=== PATIENT | female | born 1955 | race Caucasian/White ===

== ENCOUNTER → 2018-01-01 15:18 | Outpatient (CLI) | payer OTHER, SELFPAY ==
--- NOTE | 2018-01-01 15:28 | RAD_ITS ---
STUDY: X-RAY - LEFT KNEE REASON FOR EXAM: Female, 62 years old. Knee pain. TECHNIQUE: 3 view(s) of the knee. COMPARISON: None. FINDINGS: Normal visualized distal femur. Normal visualized proximal tibia and fibula. Normal proximal tibiofibular articulation. There is no acute fracture, dislocation or destructive osseous pathology. Normal medial femorotibial compartment. Normal lateral femorotibial compartment. Normal patellofemoral articulation. There is no demonstrated joint effusion. The soft tissue structures are unremarkable. RAD/Knee 3 Views IMPRESSION: Normal x-ray examination of the knee. Electronically Signed: Lenin Gustafson DO at 12:03 EDT Tel [phone], Service support ,
--- NOTE | 2018-01-01 15:28 | RAD_ITS ---
STUDY: X-RAY - RIGHT KNEE REASON FOR EXAM: Female, 62 years old. Total knee arthroplasty TECHNIQUE: 3 view(s) of the knee. COMPARISON: None. FINDINGS: There is a 3 part right knee arthroplasty. It appears to be in anatomic position and alignment noting that the patellofemoral compartment is partially obscured by the metallic components or possibly narrowed. There is no visualized acute fracture. There is a slight well-corticated irregular appearance of the proximal fibula on the lateral view which may represent old injury. RAD/Knee 3 Views IMPRESSION: Right knee arthroplasty as detailed above. Electronically Signed: Vanessa Castellanos MD at 16:22 EDT Tel , Service support ,
== END ==
PROVIDERS: Family Provider Family Medicine; PCP Family Medicine; Visit Provider Orthopaedic Surgery
DX: Z96.651 Presence of right artificial knee joint (principal); Z98.890 Other specified postprocedural states
CPT/HCPCS: 73562

== ENCOUNTER → 2018-01-29 14:56 | Outpatient (CLI) | payer OTHER, SELFPAY ==
--- NOTE | 2018-01-29 14:59 | BI_ITS ---
MAMMOGRAPHY - BILATERAL SCREENING REASON FOR EXAM: Female, 62 years old. Routine annual screening examination. PERTINENT HISTORY: Mother with breast cancer. TECHNIQUE: Digital bilateral breast kiya (3D mammographic acquisition) in the CC and MLO projections. 2-D mediolateral oblique (MLO) and craniocaudad (CC) views of both breasts were obtained. CAD: Full Field Digital Mammography with Computer Added Detection was performed. COMPARISON: Comparison is made with prior study dated January 15, 2016 and December 20, 2013. FINDINGS: Breast Composition: The breasts are almost entirely fatty. There are no dominant masses or suspicious calcifications. Stable small benign-appearing bilateral axillary lymph nodes. No other significant abnormalities are identified. There has been no significant change since the prior study. BI/SCREENING MAMM (CAD), BILAT IMPRESSION: Stable bilateral screening mammogram. Yearly follow-up mammogram recommended. (A) ASSESSMENT CATEGORY: BIRADS Category 1: Negative. A letter regarding these results will be sent to the patient by the facility within 30 days. Approximately 10% of breast cancers are not detected by mammography. A normal mammogram should not delay biopsy of a clinically suspicious abnormality. [id number] Electronically Signed: Benji Garcia MD at 8:16 EDT Tel [phone], Service support ,
== END ==
PROVIDERS: Family Provider Family Medicine; PCP Family Medicine; Visit Provider Family Medicine
DX: Z12.31 Encounter for screening mammogram for malignant neoplasm of breast (principal)
CPT/HCPCS: 77063; 77067

== ENCOUNTER → 2018-07-16 16:33 | Outpatient (CLI) | payer MEDICARE, OTHER, SELFPAY ==
[2018-07-16 17:36] LABS: Absolute Lymphocyte Count 1.96 X10^3/ul (0.83-4.51); Absolute Neutrophil Count 4.5 X10^3/uL (2.0-7.7); Basophil# 0.04 X10^3/uL; Basophil% 0.6 % (0-1); Eosinophil# 0.18 X10^3/uL; Eosinophils% 2.5 % (0-5); Hematocrit 42.3 % (37-47); Hemoglobin 14.4 g/dl (12.0-15.0); Lymphocyte # 1.96 X10^3/ul (4.0); Lymphocyte % 27.5 % (19-41); Mean Corpuscular Hgb 31.4 pg (27.0-32.0); Mean Corpuscular Volume 92.2 fL (81-99); Mean Platelet Vol. 10.6 fl (6.2-12.0); Monocyte# 0.39 X10^3/uL; Monocyte% 5.5 % (0-10); Neutrophil # 4.54 X10^3/uL (2.7-7.7); Neutrophil % 63.6 % (47-70); Platelet Count 223 K/mm3 (150-450); RBC Distribution Width CV 12.8 % (11.6-14.6); RBC Distribution Width SD 42.3 fl (35.1-43.9); Red Blood Count 4.59 M/mm3 (4.2-5.4); White Blood Count 7.1 K/mm3 (4.4-11.0)
[2018-07-16 17:49] LABS: Anion Gap 8 (5-15); BUN 17 mg/dL (7-18); BUN/Creat Ratio 21.8 RATIO (10-20); Calcium,Total 8.7 mg/dL (8.5-10.1); Chloride 104 mmol/L (98-107); Cholesterol 258 mg/dL (200); Creatinine, Serum 0.78 mg/dL (0.55-1.02); EST Glomerular Filtration Rate 79 mL/min (>60); Est Glom Filt Rate - Afr Amer 95 mL/min (>60); Glucose 106 mg/dL (74-106); High Density Lipoprotein 68 mg/dL; Potassium 3.9 mmol/L (3.5-5.1); Sodium Level 141 mmol/L (136-145); Thyroid Stim Hormone (TSH) 1.88 uIU/mL (0.358-3.74); Triglycerides 130 mg/dL; Very Low Density Lipoprotein 26 mg/dL (5-40)
[2018-07-16 18:06] LABS: POSITIVE COUNT NO; POSITIVE DIFFERENTIAL NO; POSITIVE MORPHOLOGY NO
== END ==
PROVIDERS: Family Provider Family Medicine; PCP Family Medicine; Referring Provider Family Medicine; Visit Provider Family Medicine
DX: G31.84 Mild cognitive impairment of uncertain or unknown etiology (principal); E78.00 Pure hypercholesterolemia, unspecified
CPT/HCPCS: 36415; 80048; 80061; 84443; 85025

== ENCOUNTER 2019-03-24 21:41 | Emergency (ER) | payer MEDICARE, OTHER, SELFPAY ==
[2019-03-24 21:42] VITALS: BP 134/72; PULSE 76; RESP 15; TEMP 37.3; O2SAT 99; BMI 34.7
--- NOTE | 2019-03-24 22:17 | CT_ITS ---
STUDY: CT BRAIN WITHOUT CONTRAST REASON FOR EXAM: Female, 64 years old. Headache. Dementia RADIATION DOSAGE (If Supplied By Facility): CTDIvol = ( 44.99 ) mGy, DLP = ( 762.36 ) mGycm TECHNIQUE: Transaxial CT imaging of the brain was performed without administration of intravenous contrast material. Individualized dose optimization techniques were used for this CT. COMPARISON: January 18, 2017 FINDINGS: Normal soft tissue structures. Normal calvarium. There is mild cerebral atrophy with widening of the extra-axial spaces and ventricular dilatation. There are areas of decreased attenuation within the white matter tracts of the supratentorial brain, consistent with microvascular disease changes. Normal basal ganglia and thalami. Normal brainstem. Normal cerebellum. There is no intracranial hemorrhage. There are no findings of an acute ischemic infarction. Normal visualized paranasal sinuses. CT/Brain/Head without Contrast IMPRESSION: Chronic involutional changes of the brain. Stable appearance. No hemorrhage Electronically Signed: Pre Ness MD at 23:32 EDT , Service support ,
[2019-03-24 22:19] LABS: Absolute Lymphocyte Count 2.52 X10^3/ul (0.83-4.51); Absolute Neutrophil Count 5.1 X10^3/uL (2.0-7.7); Basophil# 0.04 X10^3/uL; Basophil% 0.5 % (0-1); Eosinophil# 0.13 X10^3/uL; Eosinophils% 1.5 % (0-5); Hemoglobin 14.7 g/dl (12.0-15.0); Lymphocyte # 2.52 X10^3/ul (4.0); Lymphocyte % 29.4 % (19-41); Mean Corpuscular Hgb 30.8 pg (27.0-32.0); Mean Corpuscular Volume 87.9 fL (81-99); Mean Platelet Vol. 10.1 fl (6.2-12.0); Monocyte# 0.79 X10^3/uL; Monocyte% 9.2 % (0-10); Neutrophil % 59.4 % (47-70); Platelet Count 202 K/mm3 (150-450); RBC Distribution Width SD 41.8 fl (35.1-43.9); Red Blood Count 4.78 M/mm3 (4.2-5.4); White Blood Count 8.6 K/mm3 (4.4-11.0)
--- NOTE | 2019-03-24 22:19 | ED.DCSUM_ITS ---
- ER Visit Summary Date of Service: 03/24/19 Chief Complaint: Headache and lower abdominal cramping History of Present Illness: The patient is a 64 F history of dementia and diverticulitis. Prior cholecystectomy and hysterectomy. states she really has not said much to him recently. She states she has had a headache frontal for the last 2 weeks. Denies any falls or trauma. No blood thinners. Also states she has had intermittent lower abdominal cramping. No fever. She has had some intermittent diarrhea which is a constant and chronic problem for her. Denies any dysuria. Denies any weight loss. Denies any abdominal trauma. Physical Examination: Vital signs are stable afebrile. Older female no acute distress. at bedside. HEENT exam unremarkable atraumatic. Pupils are round reactive light. No facial droop. Normal speech. Neck nontender no meningismus. Lungs clear to auscultation bilaterally. Heart rate and rhythm no murmur. Abdomen soft. Nondistended normal bowel sounds no peritoneal signs. But the right upper right lower quadrant unremarkable. She complains of tenderness in both lower quadrants and suprapubically is minimally reproducible at all. There is minimal tenderness. Absolutely no peritoneal signs. No hernias or masses. No signs of obstruction. Moving all 4 extremities. Neurovascularly intact. Awake and alert. No focal motor deficits. Test Results: CBC normal with a white count 8. Hemoglobin 14. Electrolytes unremarkable potassium 3.0. Gap is 7. Creatinine normal. UA normal. No signs of infection. CAT scan of the brain showed no acute abnormality. Chronic involutional changes. Stable and unchanged. Read by the radiologist and reviewed by me. Emergency Department Course and Treatment: Screening labs are being obtained. CT of the brain also. She is a headache. Patient is also limited informant due to her dementia. She has actually had benign exam. Repeat exam patient is doing well at 00:22 a.m. and will be discharged home. Abdominal exam is benign. She feels and looks better. Treatment Plan: Foods and rest. Zofran as needed. Follow-up with her doctor if not improving return if worse. Disposition: dc Impression: Acute abdominal pain uncertain etiology Acute headache History dementia This note was generated with [employer] software. It may contain incorrect words, spelling, and punctuation that were not noted in review of the chart prior to signing ED Disposition - Plan for ED Patient: Referrals: Manuel Lu MD [Primary Care Provider] -
[2019-03-24 22:20] LABS: POSITIVE COUNT NO; POSITIVE DIFFERENTIAL NO; POSITIVE MORPHOLOGY NO
[2019-03-24] MEDS: Ondansetron 4 MG/2 ML Vial IV (22:24)
[2019-03-24 22:32] LABS: Anion Gap 7 (5-15); BUN 16 mg/dL (7-18); Calcium,Total 9.1 mg/dL (8.5-10.1); Chloride 104 mmol/L (98-107); Creatinine, Serum 1.07 mg/dL (0.55-1.02); EST Glomerular Filtration Rate 55 mL/min (>60); Est Glom Filt Rate - Afr Amer 66 mL/min (>60); Glucose 162 mg/dL (74-106); Sodium Level 142 mmol/L (136-145)
[2019-03-24 23:49] LABS: Mucous, Urine 0 SEEN /hpf (<or=2+); Red Blood Cells-Urine 0 SEEN /hpf (0-5)
[2019-03-24 23:51] LABS: Color, Urine Yellow (Yellow); Glucose, Dipstick Normal (Normal); Ketone-Dipstick Negative (Negative); Leukocyte Esterase-Dipstick 100 /ul (Negative); Nitrite-Dipstick Negative (Negative); Occult Blood-Urine 10 /ul (Negative); Protein-Dipstick Negative (Negative); Specific Gravity, Urine 1.005 (1.002-1.030); Urine Bilirubin Dipstick Negative (Negative); Urine Clarity Clear (Clear); Urine Urobilinogen Normal (Normal)
[2019-03-24 23:59] LABS: Bacteria RARE /hpf (None Seen); Squamous Epithelial Cells - UA 0-5 SEEN /hpf (5-10); White Blood Cells 0-5 SEEN /hpf (0-5)
--- NOTE | 2019-03-25 00:24 | ED.DEP ---
ED Disposition - Plan for ED Patient: Disposition: Home or Assisted Living Instructions: VOMITING AND DIARRHEA, Nonspecific (Adult) Prescriptions: Ondansetron [Zofran Odt] 4 mg PO Q8H PRN PRN #7 tab PRN Reason: Nausea Prescription Printed Referrals: Manuel Lu MD [Primary Care Provider] - 3-5 Days if not improving Additional Instructions: Clear fluids and rest. Stand slowly as tolerated. Zofran as needed for nausea. Return if you are feeling worse otherwise follow-up with your primary care doctor if you are not improving.
[2019-03-25] MEDS: Ondansetron 4 MG/2 ML Vial IV (00:39)
[2019-03-25] MEDS: Acetaminophen 325 MG Tablet 650 MG PO (00:39)
[2019-03-25 00:44] VITALS: BP 159/80; PULSE 74; RESP 16; O2SAT 98
== END 2019-03-25 00:50 | disposition home or self-care (01) ==
PROVIDERS: Emergency Provider Emergency Medicine; Family Provider Family Medicine; PCP Family Medicine
DX: R10.30 Lower abdominal pain, unspecified (principal); R51 Headache; F03.90 Unspecified dementia, unspecified severity, without behavioral disturbance, psychotic disturbance, mood disturbance, and anxiety; R11.0 Nausea; R19.7 Diarrhea, unspecified; Z90.49 Acquired absence of other specified parts of digestive tract; Z79.899 Other long term (current) drug therapy
CPT/HCPCS: 70450; 80048; 81001; 84703; 85025; 96374; 96376; 99285; P9612; A4216; J2405

== ENCOUNTER → 2019-05-03 | Outpatient (CLI) | payer MEDICARE, OTHER, SELFPAY ==
[2019-05-03 13:48] LABS: Absolute Lymphocyte Count 1.79 X10^3/uL (0.83-4.51); Absolute Neutrophil Count 3.8 X10^3/uL (2.0-7.7); Basophil# 0.05 X10^3/uL; Basophil% 0.8 % (0-1); Eosinophil# 0.13 X10^3/uL; Eosinophils% 2.1 % (0-5); Hematocrit 42.2 % (37-47); Hemoglobin 14.4 g/dL (12.0-15.0); Lymphocyte # 1.79 X10^3/ul (4.0); Lymphocyte % 29.1 % (19-41); Mean Corp Hgb Conc 34.1 g/dL (32-36); Mean Corpuscular Hgb 30.1 pg (27.0-32.0); Mean Corpuscular Volume 88.3 fL (81-99); Mean Platelet Vol. 10.6 fl (6.2-12.0); Monocyte# 0.37 X10^3/uL; NRBC Flagged by Analyzer 0 % (0-5); Neutrophil # 3.81 X10^3/uL (2.7-7.7); Neutrophil % 61.8 % (47-70); Platelet Count 202 K/mm3 (150-450); RBC Distribution Width CV 12.3 % (11.6-14.6); RBC Distribution Width SD 39.8 fl (35.1-43.9); Red Blood Count 4.78 M/mm3 (4.2-5.4); White Blood Count 6.2 K/mm3 (4.4-11.0)
[2019-05-03 14:12] LABS: ALB/GLOB Ratio 1.1 RATIO (0.9-2.4); AST(SGOT) 21 U/L (15-37); Alanine Aminotransfer ALT/SGPT 26 U/L (13-56); Albumin, Serum 4.1 g/dL (3.2-5.0); Alkaline Phosphatase 96 U/L (45-117); Anion Gap 7 (5-15); BUN 20 mg/dL (7-18); BUN/Creat Ratio 21.1 RATIO (10-20); Chloride 107 mmol/L (98-107); Creatinine, Serum 0.95 mg/dL (0.55-1.02); EST Glomerular Filtration Rate 63 mL/min (>60); Est Glom Filt Rate - Afr Amer 76 mL/min (>60); Globulin 3.8 g/dL (2.2-4.2); Glucose 105 mg/dL (74-106); Lipase 73 U/L (73-393); Potassium 3.6 mmol/L (3.5-5.1); Protein, Total 7.9 g/dL (6.4-8.2); Sodium Level 143 mmol/L (136-145); Thyroid Stim Hormone (TSH) 1.13 uIU/mL (0.358-3.74)
== END | disposition home or self-care (01) ==
LOC: MTLAB 12:01
PROVIDERS: Family Provider Family Medicine; PCP Family Medicine; Referring Provider Family Medicine; Visit Provider Family Medicine
DX: R53.83 Other fatigue (principal); R10.9 Unspecified abdominal pain
CPT/HCPCS: 36415; 80053; 83690; 84443; 85025

== ENCOUNTER → 2019-05-10 | Outpatient (CLI) | payer MEDICARE, OTHER, SELFPAY ==
--- NOTE | 2019-05-10 07:34 | CT_ITS ---
STUDY: CT ABDOMEN AND PELVIS WITH CONTRAST REASON FOR EXAM: Female, 64 years old. 4 week history of abdominal pain and abdominal cramping with nausea and vomiting. RADIATION DOSAGE (If Supplied By Facility): CTDIvol = ( 17.25 ) mGy, DLP = ( 1116.28 ) mGycm TECHNIQUE: Transaxial images were obtained from the dome of the diaphragm to the symphysis pubis with oral contrast. 100CC IV/Oral Isovue 300 was administered. Sagittal and coronal images were reconstructed. Individualized dose optimization techniques were used for this CT. COMPARISON: Comparison is made with prior examination dated January 18, 2017. FINDINGS: Minimal degree of dependent bibasilar atelectasis. The visualized portions of the heart are within normal limits. There is decreased attenuation of the liver consistent with steatosis. There are surgical clips in the gallbladder fossa consistent with a prior cholecystectomy. Normal spleen. There is diffuse atrophy of the pancreas. Normal bilateral adrenal glands. Normal right kidney. Normal left kidney. Normal visualized stomach. Normal small intestine. Large amount of fecal material is seen in the rectosigmoid colon. The appendix is visualized and appears normal. Normal abdominal aorta. Normal inferior vena cava. Normal retroperitoneum. Normal urinary bladder. There is absence of the uterus consistent with a prior hysterectomy. There is an umbilical hernia containing fat. The neck of the hernia measures 4.9 cm. Disc space narrowing and spondylosis at the L4-L5 level. CT/Abdomen/Pelvis WITH Contrast IMPRESSION: Moderate sized umbilical hernia. Large amount of fecal material is seen in the rectosigmoid colon. Fatty infiltration of the liver. Electronically Signed: Benji Garcia, at 14:57 EDT , Service support ,
== END | disposition home or self-care (01) ==
PROVIDERS: Family Provider Family Medicine; PCP Family Medicine; Referring Provider Family Medicine; Visit Provider Family Medicine
DX: R10.9 Unspecified abdominal pain (principal)
CPT/HCPCS: 74177; Q9967

== ENCOUNTER → 2019-05-13 | Outpatient (CLI) | payer MEDICARE, OTHER, SELFPAY ==
--- NOTE | 2019-05-13 13:47 | BI_ITS ---
MAMMOGRAPHY - BILATERAL SCREENING REASON FOR EXAM: Female, 64 years old. Routine annual screening examination. PERTINENT HISTORY: Mother with breast cancer. TECHNIQUE: Digital bilateral breast otis (3D mammographic acquisition) in the CC and MLO projections. 2-D mediolateral oblique (MLO) and craniocaudad (CC) views of both breasts were obtained. CAD: Full Field Digital Mammography with Computer Added Detection was performed. COMPARISON: Comparison is made with prior study dated January 29, 2018 and January 15, 2016. FINDINGS: Breast Composition: The breasts are almost entirely fatty. There are no dominant masses or suspicious calcifications. Stable small left axillary lymph nodes. No other significant abnormalities are identified. There has been no significant change since the prior study. BI/SCREEN MAMM (CAD) W/OTIS BILAT IMPRESSION: Stable bilateral screening mammogram. Yearly follow-up mammogram recommended. (A) ASSESSMENT CATEGORY: BIRADS Category 2: Benign. A letter regarding these results will be sent to the patient by the facility within 30 days. Approximately 10% of breast cancers are not detected by mammography. A normal mammogram should not delay biopsy of a clinically suspicious abnormality. [id number] Electronically Signed: Benji Garcia, at 15:09 EDT , Service support ,
== END | disposition home or self-care (01) ==
LOC: OPBI 13:45
PROVIDERS: Family Provider Family Medicine; PCP Family Medicine; Referring Provider Family Medicine; Visit Provider Family Medicine
DX: Z12.31 Encounter for screening mammogram for malignant neoplasm of breast (principal)
CPT/HCPCS: 77063; 77067

== ENCOUNTER → 2020-03-29 14:25 | Outpatient (CLI) | payer MEDICARE, OTHER, SELFPAY ==
--- NOTE | 2020-03-29 14:30 | RAD_ITS ---
STUDY: X-RAY - RIGHT KNEE REASON FOR EXAM: Female, 65 years old. The patient TECHNIQUE: 5 view(s) of the knee. COMPARISON: 01/01/2018 FINDINGS: There are stable postsurgical changes from right knee arthroplasty. The hardware is intact and alignment is satisfactory. There is no evidence of fracture or dislocation. There are no significant degenerative changes. There are no radiodense foreign bodies. RAD/Knee 4 or More Views IMPRESSION: Stable postsurgical changes from right knee arthroplasty with intact hardware in satisfactory alignment. No fracture or dislocation. Electronically Signed: Dominick Urena, at 15:07 EDT Tel , Service support ,
== END ==
PROVIDERS: PCP Family Medicine; Referring Provider Family Medicine; Visit Provider Family Medicine
DX: M25.561 Pain in right knee (principal)
CPT/HCPCS: 73564

== ENCOUNTER → 2020-04-28 15:27 | Outpatient (CLI) | payer MEDICARE, OTHER, SELFPAY ==
[2020-04-28 17:56] LABS: ALB/GLOB Ratio 1.3 RATIO (0.9-2.4); AST(SGOT) 22 U/L (15-37); Alanine Aminotransfer ALT/SGPT 25 U/L (13-56); Alkaline Phosphatase 92 U/L (45-117); Anion Gap 7 (5-15); BUN 21 mg/dL (7-18); BUN/Creat Ratio 21.9 RATIO (10-20); Chloride 106 mmol/L (98-107); Cholesterol 185 mg/dL (200); Creatinine, Serum 0.96 mg/dL (0.55-1.02); EST Glomerular Filtration Rate 62 mL/min (>60); Est Glom Filt Rate - Afr Amer 75 mL/min (>60); Globulin 3.1 g/dL (2.2-4.2); Glucose 87 mg/dL (74-106); High Density Lipoprotein 59 mg/dL; Potassium 3.3 mmol/L (3.5-5.1); Protein, Total 7.1 g/dL (6.4-8.2); Sodium Level 142 mmol/L (136-145); Triglycerides 81 mg/dL; Very Low Density Lipoprotein 16 mg/dL (5-40)
== END ==
PROVIDERS: PCP Family Medicine; Referring Provider Family Medicine; Visit Provider Family Medicine
DX: E78.00 Pure hypercholesterolemia, unspecified (principal)
CPT/HCPCS: 36415; 80053; 80061

== ENCOUNTER → 2020-05-15 14:57 | Outpatient (CLI) | payer MEDICARE, OTHER, SELFPAY ==
--- NOTE | 2020-05-15 14:59 | BI_ITS ---
MAMMOGRAPHY - BILATERAL SCREENING REASON FOR EXAM: Female, 65 years old. Routine annual screening examination. PERTINENT HISTORY: Mother with breast cancer. TECHNIQUE: Digital bilateral breast otis (3D mammographic acquisition) in the CC and MLO projections. 2-D mediolateral oblique (MLO) and craniocaudad (CC) views of both breasts were obtained. CAD: Full Field Digital Mammography with Computer Added Detection was performed. COMPARISON: Comparison is made with prior study dated 05/13/2019 and 01/29/2018. FINDINGS: Breast Composition: The breasts are almost entirely fatty. There are no dominant masses or suspicious calcifications. Stable benign-appearing bilateral axillary lymph nodes. No other significant abnormalities are identified. There has been no significant change since the prior study. BI/SCREEN MAMM (CAD) W/OTIS BILAT IMPRESSION: Stable bilateral screening mammogram. Yearly follow-up mammogram recommended. (A) ASSESSMENT CATEGORY: BIRADS Category 2: Benign. A letter regarding these results will be sent to the patient by the facility within 30 days. Approximately 10% of breast cancers are not detected by mammography. A normal mammogram should not delay biopsy of a clinically suspicious abnormality. [id number] Electronically Signed: Benji Garcia, at 16:00 EDT , Service support ,
== END ==
PROVIDERS: PCP Family Medicine; Referring Provider Family Medicine; Visit Provider Family Medicine
DX: Z00.00 Encounter for general adult medical examination without abnormal findings (principal); Z12.31 Encounter for screening mammogram for malignant neoplasm of breast
CPT/HCPCS: 77063; 77067

== ENCOUNTER 2020-06-05 14:47 | Emergency (ER) | payer MEDICARE, OTHER, SELFPAY ==
[2020-06-05 14:48] VITALS: BP 118/87; PULSE 90; RESP 16; TEMP 36.1; O2SAT 97; BMI 29.0
[2020-06-05] MEDS: Ondansetron 4 MG/2 ML Vial IV (15:23)
[2020-06-05 15:24] LABS: Bacteria 0 SEEN /hpf (None Seen); Mucous, Urine 0 SEEN /hpf (<or=2+); Red Blood Cells-Urine 0 SEEN /hpf (0-5)
--- NOTE | 2020-06-05 15:28 | ED.VISSUMM ---
- ER Visit Summary Date of Service: 06/05/20 Chief Complaint: Confusion History of Present Illness: The patient is a [address] Currie. Patient has a history of severe dementia and is not able to contribute to the history. Daughter reports the patient is always confused, but today was out wandering in traffic. She lives at home with her and he is no longer able to care for her. They did try getting a home health nurse last week and the patient was not compliant with that and actually became very agitated. On review of systems patient reports that she has a little headache. She reports that she has left hip pain. When asked if there is any recent injury she denies fall or MVA. 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 Physical Examination: Vitals: Stable. Afebrile. General: Well-nourished and well-developed. Head: Normocephalic atraumatic. Neck: Supple, no lymphadenopathy. No JVD. Nontender. Cardiovascular: Regular rate and rhythm. No murmurs. Respiratory: No respiratory distress. Clear to auscultation bilaterally. Abdominal: Soft, nontender, nondistended, normal bowel sounds. No guarding, rebound, or peritoneal signs. Back: Nontender. Extremities: Nontender, no edema. Skin: Normal color, no rash. Neurologic: Alert and oriented ?1. Cranial nerves II through XII are intact. Normal strength and sensation. Psych: Agitated. Test Results: Chem-7 shows potassium 3.2, glucose 147, creatinine 1.16. LFTs are normal. UA shows leukocytes. CBC is normal. Tox screen is negative. Alcohol is negative. TSH is 1.72. Clinical Impression(s) from Imaging Studies Brain CT 06/05/20 16:15 IMPRESSION: Chronic ischemic and involutional changes of the brain. Electronically Signed: Gualberto Jules MD at 16:59 EDT , Service support , Emergency Department Course and Treatment: Patient was discussed with case management. Family is no longer able to care for her at home. Case management felt the patient would benefit most from initial consultation with geriatric psychiatry and then be sent to assisted living. Additional labs, CT brain and EKG was ordered following this. Patient became increasingly agitated and was given Geodon IM. Treatment Plan: Patient is medically cleared. Patient is going to be transferred to a facility with geriatric psychiatric facilities. Disposition: Transferred in improved condition Impression: 1. Dementia with aggressive behavior. This note was generated with [employer] dictation software. It may contain incorrect words, spelling, and punctuation that were not noted in review of the chart prior to signing ED Disposition - Plan for ED Patient: Referrals: Manuel Currie MD [Primary Care Provider] -
[2020-06-05 15:48] LABS: AST(SGOT) 15 U/L (15-37); Alanine Aminotransfer ALT/SGPT 24 U/L (13-56); Alkaline Phosphatase 103 U/L (45-117); Anion Gap 7 (5-15); BUN 15 mg/dL (7-18); BUN/Creat Ratio 12.9 RATIO (10-20); Calcium,Total 9.2 mg/dL (8.5-10.1); Chloride 103 mmol/L (98-107); Creatinine, Serum 1.16 mg/dL (0.55-1.02); EST Glomerular Filtration Rate 50 mL/min (>60); Est Glom Filt Rate - Afr Amer 61 mL/min (>60); Estimated Creatinine Clearance 44.06 ml/min; Globulin 4.1 g/dL (2.2-4.2); Glucose 147 mg/dL (74-106); Potassium 3.2 mmol/L (3.5-5.1); Protein, Total 8.1 g/dL (6.4-8.2); Sodium Level 141 mmol/L (136-145)
[2020-06-05 16:10] LABS: Color, Urine YELLOW (Yellow); Glucose, Dipstick Normal (Normal); Urine Bilirubin Dipstick Negative (Negative); Urine Clarity Sl Cloudy (Clear)
[2020-06-05 16:11] LABS: Ketone-Dipstick Negative (Negative); Leukocyte Esterase-Dipstick 25 /ul (Negative); Nitrite-Dipstick Negative (Negative); Occult Blood-Urine Negative /ul (Negative); Protein-Dipstick NEGATIVE (Negative); Urine Urobilinogen Normal (Normal)
[2020-06-05 16:12] LABS: Squamous Epithelial Cells - UA 0-5 SEEN /hpf (5-10); White Blood Cells 0-5 SEEN /hpf (0-5)
--- NOTE | 2020-06-05 16:15 | EKG12_ITS ---
Test Reason : ALT LOC Blood Pressure : / mmHG Vent. Rate : 071 BPM Atrial Rate : 071 BPM P-R Int : 186 ms QRS Dur : 092 ms QT Int : 402 ms P-R-T Axes : 045 007 028 degrees QTc Int : 436 ms Normal sinus rhythm Normal ECG Confirmed by SHIVA LALA MD ([id number]), map editor YAS TORRES ([id number]) on 06/06/2020 1:29:37 PM Referred By: DONNY Confirmed By:SHIVA LALA MD
--- NOTE | 2020-06-05 16:15 | CM.ED ---
Social Work Consult: Support/Resources Informant: Dr. Pagan Chief Complaint: Patient has been wondering and becoming aggressive with family. Patient family is having difficulty managing patient care in the home. Marital/Social History: to [employer] for the past 40 years. Patient spouse is health care power of insurance defense attorney along with patient daughters. Health Care power of insurance defense attorney is on patient medical chart. Living Situation: Lives with patient spouse. Support/Resources: Active with community service aide services. Mental Health Treatment/History: Diagnosed with Frontal Lobe Dementia. No history of mental health. No history of inpatient psychiatric placement. Substance Abuse/Use: Denies History of Abuse: Denies Mental Status Exam: Alert to self and place. Patient states reason for ER visit is due to my side. Appearance/General Behavior: Pleasant but became paranoid the longer this social sciences lecturer was in the room asking patient questions. Judgement: Poor Assessment: Met with patient and patient daughterReina in the room. Introduced self and social sciences lecturer role. Patient/Reina agreeable to speaking with this social sciences lecturer. This social sciences lecturer inquiring as to reason for patient visit today patient states to get checked out. Patient denies wondering in the road today or having a . Patient states I am not . Patient state everything is fine. Patient becoming increasing agitated (moving more around in the bed) and paranoid (looking back and forth at this social sciences lecturer and Reina). This social sciences lecturer discontinuing asking patient questions due to increase in agitation. Reina then stepping out of the room and speaking with this social sciences lecturer. Reina states that patient has been increasing in agitation and wondering. Reina states that patient spouse is unable to care for patient in the home any longer. Reina states that patient does not shower and refused to take medications. Reina states to believe that patient goes between the ages of 1 and 11 on current time frame. Reina states that patient says horrible things about my father. Reina states that it is like she plays different personalities when defining patient conversations with self and others. Reina states that patient has also been perseverating on being a dancer. Reina states that patient did do some dancing when an adolescent. Reina states that the family has been planning to get patient set up with an assisted living facility either [place] or [place] and to have had plans to start the process this week. This social sciences lecturer educating Reina on [facility] option as patient is meeting criteria. Reina to speak with patient spouse and Reina's other sisters. Patient spouse is currently out in the parking lot as patient is agitated by patient spouse of 40 years. Reina to go and call family and get back to this social sciences lecturer. Collaborating with Dr. Pagan. Agreeable to [facility]. PLAN: [facility]. Fidel PINEDA, CHAZ
--- NOTE | 2020-06-05 16:15 | CT_ITS ---
STUDY: CT BRAIN WITHOUT CONTRAST REASON FOR EXAM: Female, 65 years old. CHANGE IN MENTAL STATUS. WONDERING THROUGH TRAFFIC. HISTORY OF DEMENTIA RADIATION DOSAGE (If Supplied By Facility): CTDIvol = ( 44.99 ) mGy, DLP = ( 829.85 ) mGycm TECHNIQUE: Transaxial CT imaging of the brain was performed without administration of intravenous contrast material. Individualized dose optimization techniques were used for this CT. COMPARISON: Head CT dated March 24, 2019 FINDINGS: Normal soft tissue structures. Normal calvarium. There is moderate cerebral atrophy with widening of the extra-axial spaces and ventricular dilatation. There are areas of decreased attenuation within the white matter tracts of the supratentorial brain, consistent with microvascular disease changes. Chronic patchy ischemic changes are present in the right basal ganglia. Unremarkable thalami. Normal brainstem. Normal cerebellum. There is no intracranial hemorrhage. There are no findings of an acute ischemic infarction. Normal visualized paranasal sinuses. CT/Brain/Head without Contrast IMPRESSION: Chronic ischemic and involutional changes of the brain. Electronically Signed: Gualberto Jules MD at 16:59 EDT , Service support ,
[2020-06-05] MEDS: Ziprasidone IM 20 MG/ML VIAL 10 MG IM ×2 (16:30→20:20)
[2020-06-05 17:11] VITALS: BP 111/65; PULSE 80; RESP 16; O2SAT 99
[2020-06-05 17:12] LABS: Thyroid Stim Hormone (TSH) 1.72 uIU/mL (0.358-3.74)
[2020-06-05 17:14] LABS: Amphetamine Urine VISTA NEGATIVE (<1000 ng/mL); Barbiturate Urine VISTA NEGATIVE (< 200 ng/mL); Benzodiazepine Urine VISTA NEGATIVE (< 200 ng/mL); Cocaine Urine VISTA NEGATIVE (< 300 ng/mL); Ecstacy Urine VISTA NEGATIVE (< 500 ng/mL); Methadone Urine VISTA NEGATIVE (< 300 ng/mL); PCP Urine VISTA NEGATIVE (< 25 ng/mL); THC Urine VISTA NEGATIVE (< 50 ng/mL); Vista UDS pH Range 5
--- NOTE | 2020-06-05 17:15 | ED.RN ---
MEAL TRAY ORDERED AT THIS TIME.
[2020-06-05 17:17] LABS: Absolute Lymphocyte Count 1.96 X10^3/uL (0.83-4.51); Absolute Neutrophil Count 4.9 X10^3/uL (2.0-7.7); Basophil# 0.05 X10^3/uL; Basophil% 0.7 % (0-1); Eosinophils% 1.3 % (0-5); Hematocrit 43.4 % (37-47); Hemoglobin 14.7 g/dL (12.0-15.0); Lymphocyte # 1.96 X10^3/ul (4.0); Lymphocyte % 26.3 % (19-41); Mean Corp Hgb Conc 33.9 g/dL (32-36); Mean Corpuscular Hgb 29.9 pg (27.0-32.0); Mean Corpuscular Volume 88.2 fL (81-99); Mean Platelet Vol. 11.3 fl (6.2-12.0); Monocyte# 0.37 X10^3/uL; NRBC Flagged by Analyzer 0 % (0-5); Neutrophil # 4.93 X10^3/uL (2.7-7.7); Neutrophil % 66.3 % (47-70); Platelet Count 246 K/mm3 (150-450); RBC Distribution Width CV 12.3 % (11.6-14.6); RBC Distribution Width SD 39.8 fl (35.1-43.9); Red Blood Count 4.92 M/mm3 (4.2-5.4); White Blood Count 7.4 K/mm3 (4.4-11.0)
--- NOTE | 2020-06-05 17:50 | CM.ED ---
Social Work Reina updating this social work nurse that patient family is agreeable to [facility] placement. Telephone call to [facility]. Intake information provided. Clinical information faxed. [facility] is requesting for a COVID test to be completed to be able to accept. This social work nurse updated Dr. Pagan on need for COVID test. PLAN: Pending approval at [facility]. Fidel Hsu GLEASON GEAR GENERATOR, CHAZ
--- NOTE | 2020-06-05 19:07 | CM.ED ---
Social Work Telephone call from Sundeep Day. This rn social work able to answer Sundeep's questions. Sundeep to have doctor review case and get back to this rn social work. Fidel PINEDA, CHAZ
--- NOTE | 2020-06-05 20:22 | CM.ED ---
Social Work Telephone call from Sundeep Day. Patient has been accepted. Patient has been accepted by Dr. Alicia Navas. Nurse to call report to [phone]. Patient to admit to the [facility] facility. Updated patient, patient family, and medical team. Patient HCPOA, [employer] giving verbal permission for transfer to this social media intern and to [facility]. Fidel Hsu MSW, CHAZ
--- NOTE | 2020-06-05 20:45 | ED.RN ---
Patient moved to EMS cot with no difficulty.
--- NOTE | 2020-06-05 21:04 | ED.RN ---
Addendum entered by Roseann Mcnamara RN 06/05/20 21:16: at 2030 Original Note: this RN into room with physicians transport staff. patient agitated and refusing to leave. This RN informing patient of plan. Pt continuing to get more agitated. Pt approached RN attempting to kick RN. Pt also raising fist at this RN. RN asked patient to sit back on the bed. Pt agreeable to sit back on the bed. Pt still agitated refusing to leave. RN and EMS staff exiting the room at this time until patient calms down.
[2020-06-05 21:17] VITALS: BP 113/61; PULSE 79; RESP 14; O2SAT 99
== END 2020-06-05 21:18 | disposition home or self-care (01) ==
LOC: ED 15:29
PROVIDERS: Emergency Provider Emergency Medicine; PCP Family Medicine
DX: F03.91 Unspecified dementia, unspecified severity, with behavioral disturbance (principal); R51 Headache; M25.552 Pain in left hip; R41.82 Altered mental status, unspecified
CPT/HCPCS: 70450; 80053; 80307; 80320; 81001; 84443; 85025; 87635; 93005; 96372; 96374; 99284; C9803; A4216; G0480; J2405; J3486; U0003

== ENCOUNTER → 2020-07-04 19:30 | Outpatient (REF) | payer MEDICARE, OTHER, SELFPAY ==
[2020-06-05 14:48] VITALS: BMI 29.0
[2020-07-05 08:25] LABS: Color, Urine Straw (Yellow); Glucose, Dipstick Normal (Normal); Ketone-Dipstick Negative (Negative); Leukocyte Esterase-Dipstick Negative /ul (Negative); Nitrite-Dipstick Negative (Negative); Occult Blood-Urine Negative /ul (Negative); Protein-Dipstick Negative (Negative); Urine Bilirubin Dipstick Negative (Negative); Urine Clarity Sl. Cloudy (Clear); Urine Urobilinogen Normal (Normal)
== END ==
PROVIDERS: PCP Family Medicine; Referring Provider Family Medicine; Visit Provider Family Medicine
DX: N39.0 Urinary tract infection, site not specified (principal)
CPT/HCPCS: 81002; 87086; 87088

== ENCOUNTER → 2021-04-16 13:23 | Outpatient (CLI) | payer MEDICARE, OTHER, SELFPAY ==
--- NOTE | 2021-04-16 13:27 | CT_ITS ---
STUDY: CT CERVICAL SPINE WITH CONTRAST REASON FOR EXAM: Female, 66 years old. NECK DEFORMITY RADIATION DOSAGE (If Supplied By Facility): CTDIvol = ( 22.34 ) mGy, DLP = ( 525.85 ) mGycm TECHNIQUE: High resolution transaxial imaging was performed following intravenous administration of 100 CC ISOVUE 370. Sagittal and coronal images were reconstructed. Individualized dose optimization techniques were used for this CT. COMPARISON: None FINDINGS: Normal craniovertebral junction. Normal anterior atlantoaxial articulation. Normal odontoid process. Normal cervical lordosis. Normal vertebral bodies. There is facet arthropathy at the C1-2 level on the left. C2-3: Normal endplates. Normal disc height and morphology. Normal central canal and intervertebral neuroforamina. C3-4: Normal endplates. Normal disc height and morphology. Normal central canal and intervertebral neuroforamina. C4-5: Normal endplates. Normal disc height and morphology. Normal central canal and intervertebral neuroforamina. C5-6: Normal endplates. Normal disc height and morphology. Normal central canal and intervertebral neuroforamina. C6-7: Normal endplates. Normal disc height and morphology. Normal central canal and intervertebral neuroforamina. C7-T1: Normal endplates. Normal disc height and morphology. Normal central canal and intervertebral neuroforamina. The lung apices appear to be normal. The cervical soft tissues are normal with no prevertebral soft tissue swelling seen. 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 Otherwise the CT scan of cervical spine shows no acute pathology. Electronically Signed: Manuel Roldan DO at 7:41 EDT Tel , Service support ,
[2021-04-16 13:50] LABS: CREATININE FINGERSTICK 0.8 mg/dL (0.55-1.02); EGFR FINGERSTICK > 60.0000 mL/min (>60)
== END ==
PROVIDERS: PCP Family Medicine; Referring Provider Family Medicine; Visit Provider Family Medicine
DX: M95.3 Acquired deformity of neck (principal)
CPT/HCPCS: 72126

== ENCOUNTER 2021-06-14 07:53 | Emergency (ER) | payer MEDICARE, OTHER, SELFPAY ==
[2021-06-14 07:55] VITALS: BP 146/99; PULSE 61; RESP 18; TEMP 36.4; O2SAT 99; BMI 28.2
[2021-06-14 08:02] VITALS: O2SAT 99
--- NOTE | 2021-06-14 08:13 | CT_ITS ---
STUDY: CT BRAIN WITHOUT CONTRAST REASON FOR EXAM: Female, 66 years old. Head trauma. Dementia. RADIATION DOSAGE (If Supplied By Facility): CTDIvol = ( 44.99 ) mGy, DLP = ( 779.24 ) mGycm TECHNIQUE: Transaxial CT imaging of the brain was performed without administration of intravenous contrast material. Individualized dose optimization techniques were used for this CT. COMPARISON: Comparison is made with prior study discussed 06/05/2020. FINDINGS: Normal soft tissue structures. Normal calvarium. There is moderate cerebral atrophy with widening of the extra-axial spaces and ventricular dilatation. There are areas of decreased attenuation within the white matter tracts of the supratentorial brain, consistent with microvascular disease changes. Normal basal ganglia and thalami. Normal brainstem. Normal cerebellum. There is no intracranial hemorrhage. There are no findings of an acute ischemic infarction. Atherosclerotic calcification of the vertebral arteries and cavernous portions of the internal carotid arteries bilaterally. Normal visualized paranasal sinuses. Nasal septal deviation towards the left side of the midline. CT/Brain/Head without Contrast IMPRESSION: Chronic involutional changes of the brain. Electronically Signed: Benji Garcia MD at 8:43 EDT , Service support ,
--- NOTE | 2021-06-14 08:14 | EDS_ITS ---
HPI HPI - Fall History of Present Illness Chief Complaint: Fall Narrative Narrative: Patient states she fell this morning accidentally rolling out of bed. She is very poor historian, she does not answer most of my questions although she is awake and alert, so history is limited. She states she lives with family, but there is no one else present at this time. She states she hit her head and denies any other injury or pain. After seeing the patient I was able to obtain more history, apparently she is from a memory unit at an assisted living facility. They were aware of the fact that the patient rolled out of bed and accidentally hit her head on a nightstand and sent her for that reason. I agree she does not seem to have any other injuries. They said she is at baseline as far as her mental status. [facility] Medical History Anxiety Dementia Home Medications acetaminophen 650 mg PO Q4H PRN 06/14/21 [History Last Taken Unknown] gabapentin 200 mg PO QHS 06/14/21 [History Last Taken Unknown] hydroxyzine HCl 25 mg PO BID PRN 06/14/21 [History Last Taken Unknown] melatonin 5 mg PO QHS 06/14/21 [History Last Taken Unknown] memantine 10 mg PO BID 06/14/21 [History Last Taken Unknown] mirtazapine 7.5 mg PO QHS 06/14/21 [History Last Taken Unknown] olanzapine 5 mg PO BID 06/14/21 [History Last Taken Unknown] polyethylene glycol 3350 17 g PO DAILY PRN 06/14/21 [History Last Taken Unknown] Allergy/AdvReac Type Severity Reaction Status Date / Time acetaminophen Allergy PT UNSURE Verified 06/14/21 07:55 [From Percogesic] OF REACTION codeine Allergy Hives Verified 06/05/20 14:47 diphenhydramine Allergy PT UNSURE Verified 06/14/21 07:55 [From Percogesic] OF REACTION duloxetine [From Cymbalta] Allergy PT UNSURE Verified 06/14/21 07:55 OF REACTION erythromycin base Allergy PT UNSURE Verified 06/14/21 07:55 OF REACTION Penicillins Allergy Rash Verified 06/05/20 14:47 phenyltoloxamine Allergy PT UNSURE Verified 06/14/21 07:55 [From Percogesic] OF REACTION rofecoxib [From Vioxx] Allergy PT UNSURE Verified 06/14/21 07:55 OF REACTION Social History Smoking Status: Never smoker ROS ROS ED Review of Systems ROS Unobtainable: other Details: Dementia Musculoskeletal Musculoskeletal: Denies back pain, extremity pain, joint pain or neck pain Neurologic Neurologic: Reports headache(s) EXAM Physical Exam Const Vital Signs: 06/14/21 07:55 06/14/21 08:02 Temperature 97.6 F L Temperature Source Temporal Pulse Rate 61 Respiratory Rate 18 Respiratory Effort Normal Non-Labored Respiratory Depth Normal Respiratory Pattern Normal Blood Pressure 146/99 H Blood Pressure Mean 114 Pulse Ox 99 99 Oxygen Delivery Method Room Air Room Air Positive well nourished and well developed General Appearance ED: well developed and NAD HEENT Reports TM's clear and nasal mucous membranes and turbinates normal HEENT Narrative: Tender contusion left forehead without crepitance, hematoma, or depression trauma Face and Sinus: Negative for facial tenderness Tympanic Membrane ED: Yes TM's clear Eyes PERRL and EOMs intact bilaterally Visual Acuity: other Other Details: no entrapment or pain with extraocular movements Neck full ROM and supple General: Negative for tenderness Chest Wall inspection of chest normal and palpation of chest normal Chest: symmetrical chest wall rise; Negative for crepitus or tenderness Resp normal respiratory effort and clear to auscultation bilaterally Percussion: other equal BS bilat Cardio no murmurs Rate: regular rate Rhythm: regular rhythm GI normal to inspection, nondistended, normoactive bowel sounds, soft to palpation and non-tender Back/Spine normal ROM Cervical Spine: Negative for cervical spine tenderness Thoracic Spine / Upper Back: Negative for thoracic spinal tenderness Lumbar Spine / Lower Back: Negative for lumbar spinal tenderness Extremity normal to inspection and full ROM General Extremety ED: Negative for tenderness Neuro CN's II-XII intact bilaterally, moves all extremities, no focal motor deficits and no sensory deficits noted Bautista Coma Scale: document GCS findings Spontaneous Obeys Commands Confused 14 Sensorium / Orientation: awake, alert and oriented to person Psych mental status grossly normal and thought process normal Skin no wounds Lesions: no lesions Rashes: no rashes MDM MDM MDM Narrative Medical decision making narrative: As below CT is negative for any intracranial injury. Patient is clinically hemodynamically stable, and given the further history obtained, I do not think we need to get any other testing right now, this sounds like it was purely accidental and she will be discharged back to assisted living. Radiography Diagnostic Testing: Radiology Impression Brain CT 06/14/21 08:13 IMPRESSION: Chronic involutional changes of the brain. Electronically Signed: Benji Garcia MD at 8:43 EDT , Service support , Discharge Plan Triage Chief Complaint: Fall ED Provider: Per Jacobsen Dx/Rx/DC Orders Clinical Impression: Closed head injury without concussion, Accidental fall from bed Instructions: ED Head Injury (Adult) Prescriptions: No Action acetaminophen 325 mg Tablet 650 mg PO Q4H PRN (Reason: Pain, Mild) RF: 0 polyethylene glycol 3350 17 gram Powder In Packet 17 g PO DAILY PRN (Reason: Constipation) RF: 0 olanzapine 5 mg Tablet 5 mg PO BID RF: 0 hydroxyzine HCl 25 mg Tablet 25 mg PO BID PRN (Reason: Anxiety) RF: 0 memantine 10 mg Tablet 10 mg PO BID RF: 0 mirtazapine 7.5 mg Tablet 7.5 mg PO QHS RF: 0 gabapentin 100 mg Tablet 200 mg PO QHS RF: 0 melatonin 5 mg Tablet 5 mg PO QHS RF: 0 Primary Care Provider: Lucrecia Jerez Referrals: Lucrecia Jerez MD [Primary Care Provider] - As Needed Disposition Disposition: Home, Self Care
--- NOTE | 2021-06-14 09:21 | ED.RN ---
THIS RN CALLED REPORT BACK TO [facility] TO INFORM OF PT CARE AND DISCHARGE. PT AT BEDSIDE REPORTS THAT HE WILL TAKE PT BACK TO [facility] IN HIS VEHICLE. PT ASSISTED TO RESTROOM AND ATTENDS CHANGED. PT REDRESSED, PLACED IN WHEELCHAIR AND ASSISTED TO VEHICLE.
== END 2021-06-14 09:24 | disposition home or self-care (01) ==
PROVIDERS: Emergency Provider Emergency Medicine; PCP Family Medicine
DX: S00.83XA Contusion of other part of head, initial encounter (principal); W06.XXXA Fall from bed, initial encounter; Y93.9 Activity, unspecified; Y92.9 Unspecified place or not applicable; F41.9 Anxiety disorder, unspecified; F03.90 Unspecified dementia, unspecified severity, without behavioral disturbance, psychotic disturbance, mood disturbance, and anxiety; Z79.899 Other long term (current) drug therapy
CPT/HCPCS: 70450; 99284

== ENCOUNTER → 2021-06-18 05:00 | Outpatient (REF) | payer MEDICARE, OTHER, SELFPAY ==
[2021-06-18 07:53] LABS: Hemoglobin 12.7 g/dL (12.0-15.0); Mean Corp Hgb Conc 33.4 g/dL (32-36); Mean Corpuscular Hgb 30.2 pg (27.0-32.0); Mean Corpuscular Volume 90.3 fL (81-99); Mean Platelet Vol. 11.4 fl (6.2-12.0); Platelet Count 175 K/mm3 (150-450); RBC Distribution Width CV 13.2 % (11.6-14.6); RBC Distribution Width SD 43.6 fl (35.1-43.9); Red Blood Count 4.21 M/mm3 (4.2-5.4); White Blood Count 5.6 K/mm3 (4.4-11.0)
[2021-06-18 08:12] LABS: ALB/GLOB Ratio 0.9 RATIO (0.9-2.4); AST(SGOT) 14 U/L (15-37); Alanine Aminotransfer ALT/SGPT 20 U/L (13-56); Albumin, Serum 3.1 g/dL (3.2-5.0); Alkaline Phosphatase 77 U/L (45-117); Anion Gap 8 (5-15); BUN 22 mg/dL (7-18); BUN/Creat Ratio 34.4 RATIO (10-20); Calcium,Total 8.6 mg/dL (8.5-10.1); Chloride 108 mmol/L (98-107); Creatinine, Serum 0.64 mg/dL (0.55-1.02); EST Glomerular Filtration Rate 98 mL/min (>60); Est Glom Filt Rate - Afr Amer 119 mL/min (>60); Globulin 3.4 g/dL (2.2-4.2); Glucose 90 mg/dL (74-106); Potassium 3.4 mmol/L (3.5-5.1); Protein, Total 6.5 g/dL (6.4-8.2); Sodium Level 143 mmol/L (136-145)
== END ==
LOC: OLS.BROOKB 05:00
PROVIDERS: PCP Family Medicine; Visit Provider Family Medicine
DX: F03.90 Unspecified dementia, unspecified severity, without behavioral disturbance, psychotic disturbance, mood disturbance, and anxiety (principal)
CPT/HCPCS: 36415; 80053; 85027

== ENCOUNTER → 2021-07-16 07:05 | Outpatient (REF) | payer MEDICARE, OTHER, SELFPAY ==
[2021-07-16 08:23] LABS: Valproic Acid (Depakene) Level 37 ug/mL (50-100)
== END ==
LOC: OLS.BROOKB 07:05
PROVIDERS: PCP Family Medicine
DX: Z79.899 Other long term (current) drug therapy (principal)
CPT/HCPCS: 36415; 80164

== ENCOUNTER → 2021-08-23 05:00 | Outpatient (REF) | payer MEDICARE, OTHER, SELFPAY ==
[2021-08-23 08:45] LABS: Absolute Lymphocyte Count 3.07 X10^3/uL (0.83-4.51); Absolute Neutrophil Count 2.6 X10^3/uL (2.0-7.7); Basophil# 0.06 X10^3/uL; Basophil% 0.9 % (0-1); Eosinophil# 0.28 X10^3/uL; Eosinophils% 4.2 % (0-5); Hematocrit 35.9 % (37-47); Hemoglobin 11.9 g/dL (12.0-15.0); Lymphocyte # 3.07 X10^3/ul (0.83-4.51); Lymphocyte % 46.5 % (19-41); Mean Corp Hgb Conc 33.1 g/dL (32-36); Mean Corpuscular Hgb 30.4 pg (27.0-32.0); Mean Corpuscular Volume 91.6 fL (81-99); Monocyte# 0.54 X10^3/uL; Monocyte% 8.2 % (0-10); NRBC Flagged by Analyzer 0 % (0-5); Neutrophil # 2.63 X10^3/uL (2.7-7.7); Neutrophil % 39.9 % (47-70); Platelet Count 166 K/mm3 (150-450); RBC Distribution Width CV 12.8 % (11.6-14.6); Red Blood Count 3.92 M/mm3 (4.2-5.4); White Blood Count 6.6 K/mm3 (4.4-11.0)
== END ==
LOC: OLS.BROOKB 05:00
PROVIDERS: PCP Family Medicine
DX: F03.91 Unspecified dementia, unspecified severity, with behavioral disturbance (principal); Z79.899 Other long term (current) drug therapy
CPT/HCPCS: 36415; 85025

== ENCOUNTER → 2021-09-06 05:00 | Outpatient (REF) | payer MEDICARE, OTHER, SELFPAY ==
[2021-09-06 07:48] LABS: Absolute Lymphocyte Count 2.06 X10^3/uL (0.83-4.51); Absolute Neutrophil Count 8.9 X10^3/uL (2.0-7.7); Basophil# 0.04 X10^3/uL; Basophil% 0.3 % (0-1); Eosinophil# 0.09 X10^3/uL; Eosinophils% 0.8 % (0-5); Hematocrit 42.9 % (37-47); Hemoglobin 14.2 g/dL (12.0-15.0); Lymphocyte # 2.06 X10^3/ul (0.83-4.51); Lymphocyte % 17.3 % (19-41); Mean Corp Hgb Conc 33.1 g/dL (32-36); Mean Corpuscular Hgb 30.1 pg (27.0-32.0); Mean Corpuscular Volume 91.1 fL (81-99); Mean Platelet Vol. 11.1 fl (6.2-12.0); Monocyte# 0.81 X10^3/uL; Monocyte% 6.8 % (0-10); NRBC Flagged by Analyzer 0 % (0-5); Neutrophil # 8.86 X10^3/uL (2.7-7.7); Neutrophil % 74.4 % (47-70); Platelet Count 194 K/mm3 (150-450); RBC Distribution Width CV 12.2 % (11.6-14.6); RBC Distribution Width SD 40.8 fl (35.1-43.9); Red Blood Count 4.71 M/mm3 (4.2-5.4); White Blood Count 11.9 K/mm3 (4.4-11.0)
== END ==
LOC: OLS.BROOKB 05:00
PROVIDERS: PCP Family Medicine
DX: F03.91 Unspecified dementia, unspecified severity, with behavioral disturbance (principal); F41.1 Generalized anxiety disorder
CPT/HCPCS: 36415; 85025

== ENCOUNTER 2021-09-07 09:09 | Emergency (ER) | payer MEDICARE, OTHER, SELFPAY ==
[2021-09-07 09:10] VITALS: BP 136/119; PULSE 90; RESP 18; TEMP 37; O2SAT 97; BMI 25.5
[2021-09-07 09:20] VITALS: BP 116/77; PULSE 89; RESP 18; O2SAT 99
--- NOTE | 2021-09-07 09:32 | CT_ITS ---
HISTORY: trauma. TECHNIQUE: Multiple axial images were obtained of the brain without intravenous contrast. A radiation dose optimization technique was used for this scan. # of images incl. paperwork: 241. COMPARISON: 06/14/2021. FINDINGS: BRAIN PARENCHYMA:Multiple small foci and zones of low attenuation in the cerebral white matter most compatible with chronic small vessel ischemic gliosis. INTRACRANIAL HEMORRHAGE: No acute intracranial hemorrhage. CSF SPACES/MASS EFFECT: Diffuse atrophy with compensatory ventricular enlargement. No midline shift or other significant mass effect. ORBITS: Bilateral lens resections. CALVARIUM: Intact. PARANASAL SINUSES AND MASTOID AIR CELLS: Clear. CT/Brain/Head without Contrast IMPRESSION: No acute intracranial process identified. Chronic small vessel ischemic gliosis and volume loss. Individualized dose optimization techniques were used for this CT. at 1007 Reported and signed by: Leisa العلي MD Electronically Signed: Leisa العلي MD at 10:06 EST Tel , Service support ,
--- NOTE | 2021-09-07 09:32 | CT_ITS ---
HISTORY: trauma. TECHNIQUE: Helically acquired images were obtained of the cervical spine. 2D reformatted images were reviewed. A radiation dose optimization technique was used for this scan. # of images incl. paperwork: 414. IV Contrast dosage and agent: None. COMPARISON: 04/16/2021. FINDINGS: VERTEBRAE: No acute fracture identified. Vertebral body heights maintained. Chronic ossifications posterior to the C5 and C6 spinous processes. Anterior osteophytes of C5 and C6. VERTEBRAL ALIGNMENT: No significant anterior or posterior subluxation. Slight reversal of the cervical lordosis. DISCS: Mild posterior disc bulge osteophyte complexes of C4-5, C5-6, and C6-7. SOFT TISSUES: No prevertebral soft tissue swelling. CT/Spine Cervical without Contras IMPRESSION: No evidence of acute cervical spinal fracture or dislocation. Mild degenerative change. Individualized dose optimization techniques were used for this CT. at 1014 Reported and signed by: Leisa العلي MD Electronically Signed: Leisa العلي MD at 10:13 EST Tel , Service support ,
--- NOTE | 2021-09-07 09:44 | EX.ED.GENINJ ---
HPI History of Present Illness Chief Complaint: Fall Informant: patient and EMS Narrative Narrative: History is quite limited. Patient does have dementia and is in a memory care unit. She states she remembers falling. But she cannot give me any details past that. She denies that she hurts anywhere. My understanding is that she was transferring from a bed to a wheelchair and fell. This sounds like she was attended by others at the time. She did go back and hit her head. I have no report of loss of consciousness. The original EMS report stated there was not 1. But I guess EMS staff here stated they were not sure. I have no indication that she is on blood thinners. Nothing is known to make symptoms better or worse but patient has no symptoms that I can get from her. [facility] Medical History Anxiety Dementia Multiple-personality disorder Home Medications acetaminophen 650 mg PO Q4H PRN 06/14/21 [History Last Taken Unknown] gabapentin 200 mg PO QHS 06/14/21 [History Last Taken Unknown] hydroxyzine HCl 25 mg PO BID PRN 06/14/21 [History Last Taken Unknown] melatonin 5 mg PO QHS 06/14/21 [History Last Taken Unknown] memantine 10 mg PO BID 06/14/21 [History Last Taken Unknown] mirtazapine 7.5 mg PO QHS 06/14/21 [History Last Taken Unknown] olanzapine 5 mg PO BID 06/14/21 [History Last Taken Unknown] polyethylene glycol 3350 17 g PO DAILY PRN 06/14/21 [History Last Taken Unknown] alum-mag hydroxide-simeth [Mi-Acid] 30 ml PO Q4H PRN 09/07/21 [History Last Taken Unknown] clozapine 25 mg PO BID 09/07/21 [History Last Taken Unknown] dicyclomine 10 mg PO TID PRN PRN 09/07/21 [History Last Taken Unknown] divalproex 125 mg PO BID 09/07/21 [History Last Taken Unknown] hydroxyzine pamoate [Vistaril] 25 mg PO BID 09/07/21 [History Last Taken Unknown] ibuprofen 600 mg PO TID PRN 09/07/21 [History Last Taken Unknown] magnesium hydroxide [Milk of Magnesia] 30 ml PO DAILY PRN 09/07/21 [History Last Taken Unknown] menthol [Biofreeze (menthol)] 1 applic TOPICAL TID PRN 09/07/21 [History Last Taken Unknown] menthol-zinc oxide [Calmoseptine] 1 applic TOPICAL TID PRN PRN 09/07/21 [History Last Taken Unknown] Allergy/AdvReac Type Severity Reaction Status Date / Time acetaminophen Allergy PT UNSURE Verified 09/07/21 09:15 [From Percogesic] OF REACTION codeine Allergy Hives Verified 09/07/21 09:15 diphenhydramine Allergy PT UNSURE Verified 09/07/21 09:15 [From Percogesic] OF REACTION duloxetine [From Cymbalta] Allergy PT UNSURE Verified 09/07/21 09:15 OF REACTION erythromycin base Allergy PT UNSURE Verified 09/07/21 09:15 OF REACTION Penicillins Allergy Rash Verified 09/07/21 09:15 phenyltoloxamine Allergy PT UNSURE Verified 09/07/21 09:15 [From Percogesic] OF REACTION rofecoxib [From Vioxx] Allergy PT UNSURE Verified 09/07/21 09:15 OF REACTION Social History Smoking Status: Never smoker ROS ROS ED ROS Narrative Review of systems is really unobtainable. Patient denies any complaints but due to chronic dementia I am not able to get any useful review of systems. Review of Systems ROS Unobtainable: other Details: Chronic dementia, unable to get review of systems. EXAM Physical Exam Const Vital Signs: 09/07/21 09:10 09/07/21 09:16 09/07/21 09:20 Temperature 98.6 F Temperature Source Axillary Pulse Rate 90 89 Respiratory Rate 18 18 Respiratory Effort Normal Blood Pressure 136/119 H 116/77 Blood Pressure Mean 124 90 Pulse Ox 97 99 Oxygen Delivery Method Room Air Room Air Patient is sitting quietly in bed. She is pleasant. She is nontoxic. Positive well nourished and well developed General Appearance ED: well developed and NAD HEENT HEENT Narrative: There is report of frontal contusion. I am not seeing this at this time. I moved her hair aside in all areas of the head. I do not feel or see a contusion. There is no tenderness. No nasal bleeding or epistaxis. No facial tenderness. Eyes EOMs intact bilaterally Neck General: Negative for tenderness Chest Wall inspection of chest normal Resp normal respiratory effort Auscultation: Negative for rales, rhonchi or wheezes Cardio regular rhythm Rate: regular rate GI normal to inspection, nondistended, normoactive bowel sounds Back/Spine normal to inspection and no thoracic nor lumbar tenderness Back/Spine Narrative: I get no cervical, thoracic or lumbar tenderness. Thoracic Spine / Upper Back: Negative for thoracic spinal tenderness Extremity normal to inspection and full ROM Extremity Narrative: Patient looks like she has had a right total knee. But there is no tenderness to palpation or range of motion of entire upper or lower extremities. General Extremety ED: Negative for deformity or tenderness General Extremity: Negative for deformity Neuro Sensorium / Orientation: alert Skin no rashes or lesions noted and no wounds MDM MDM MDM Narrative Medical decision making narrative: CT of the patient's head and neck showed no acute process. She has not developed any further areas of pain or discomfort. Plan will be to get her back to her nursing facility. Radiography Diagnostic Testing: Clinical Impression(s) from Imaging Studies Brain CT 09/07/21 09:32 IMPRESSION: No acute intracranial process identified. Chronic small vessel ischemic gliosis and volume loss. Individualized dose optimization techniques were used for this CT. at 1007 Reported and signed by: Leisa العلي MD Electronically Signed: Leisa العلي MD at 10:06 EST Tel , Service support , Cervical Spine CT 09/07/21 09:32 IMPRESSION: No evidence of acute cervical spinal fracture or dislocation. Mild degenerative change. Individualized dose optimization techniques were used for this CT. at 1014 Reported and signed by: Leisa العلي MD Electronically Signed: Leisa العلي MD at 10:13 EST Tel , Service support , Discharge Plan Triage Chief Complaint: Fall ED Provider: Edis Shepard Dx/Rx/DC Orders Clinical Impression: Fall at senior care, Closed head injury Instructions: ED Head Injury (Adult), ED Fall Prevention Prescriptions: No Action acetaminophen 325 mg Tablet 650 mg PO Q4H PRN (Reason: pain/fever) RF: 0 polyethylene glycol 3350 17 gram Powder In Packet 17 g PO DAILY PRN (Reason: Constipation) RF: 0 olanzapine 5 mg Tablet 5 mg PO BID RF: 0 hydroxyzine HCl 25 mg Tablet 25 mg PO BID PRN (Reason: Anxiety) RF: 0 memantine 10 mg Tablet 10 mg PO BID RF: 0 mirtazapine 7.5 mg Tablet 7.5 mg PO QHS RF: 0 gabapentin 100 mg Tablet 200 mg PO QHS RF: 0 melatonin 5 mg Tablet 5 mg PO QHS RF: 0 magnesium hydroxide [Milk of Magnesia] 400 mg/5 mL Suspension 30 ml PO DAILY PRN (Reason: Constipation) RF: 0 alum-mag hydroxide-simeth [Mi-Acid] 200-200-20 mg/5 mL Suspension 30 ml PO Q4H PRN (Reason: Indigestion) RF: 0 ibuprofen 600 mg Tablet 600 mg PO TID PRN (Reason: pain/fever) RF: 0 divalproex 125 mg Capsule, Delayed Rel Sprinkle 125 mg PO BID RF: 0 dicyclomine 10 mg Capsule 10 mg PO TID PRN PRN (Reason: stomach cramping) RF: 0 hydroxyzine pamoate [Vistaril] 25 mg Capsule 25 mg PO BID RF: 0 clozapine 12.5 mg Tablet 25 mg PO BID RF: 0 menthol-zinc oxide [Calmoseptine] 0.44-20.6 % Ointment 1 applic TOPICAL TID PRN PRN (Reason: skin issues) RF: 0 Biofreeze (menthol) 4 % Gel 1 applic TOPICAL TID PRN (Reason: Muscle Pain) RF: 0 Primary Care Provider: Lucrecia Jerez Referrals: Lucrecia Jerez MD [Primary Care Provider] - As Needed Disposition Disposition: Senior Care Facility
[2021-09-07 11:18] VITALS: BP 118/74; PULSE 79; RESP 16; O2SAT 98
== END 2021-09-07 11:19 | disposition skilled nursing facility (03) ==
PROVIDERS: Emergency Provider Emergency Medicine; PCP Family Medicine
DX: S09.90XA Unspecified injury of head, initial encounter (principal); W19.XXXA Unspecified fall, initial encounter; Y93.9 Activity, unspecified; Y92.129 Unspecified place in nursing home as the place of occurrence of the external cause; F41.9 Anxiety disorder, unspecified; F03.90 Unspecified dementia, unspecified severity, without behavioral disturbance, psychotic disturbance, mood disturbance, and anxiety; Z79.899 Other long term (current) drug therapy
CPT/HCPCS: 70450; 72125; 99284

== ENCOUNTER → 2021-09-13 05:00 | Outpatient (REF) | payer MEDICARE, OTHER, SELFPAY ==
[2021-09-13 08:43] LABS: Absolute Lymphocyte Count 2.24 X10^3/uL (0.83-4.51); Basophil# 0.05 X10^3/uL; Basophil% 0.7 % (0-1); Eosinophil# 0.25 X10^3/uL; Eosinophils% 3.5 % (0-5); Hematocrit 39.3 % (37-47); Hemoglobin 13.3 g/dL (12.0-15.0); Lymphocyte # 2.24 X10^3/ul (0.83-4.51); Lymphocyte % 31.2 % (19-41); Mean Corp Hgb Conc 33.8 g/dL (32-36); Mean Corpuscular Volume 88.5 fL (81-99); Mean Platelet Vol. 10.4 fl (6.2-12.0); Monocyte# 0.62 X10^3/uL; Monocyte% 8.6 % (0-10); NRBC Flagged by Analyzer 0 % (0-5); Neutrophil # 3.98 X10^3/uL (2.7-7.7); Neutrophil % 55.4 % (47-70); Platelet Count 223 K/mm3 (150-450); RBC Distribution Width SD 38.5 fl (35.1-43.9); Red Blood Count 4.44 M/mm3 (4.2-5.4); White Blood Count 7.2 K/mm3 (4.4-11.0)
== END ==
LOC: OLS.BROOKB 05:00
PROVIDERS: PCP Family Medicine
DX: F41.1 Generalized anxiety disorder (principal); F03.91 Unspecified dementia, unspecified severity, with behavioral disturbance; Z79.899 Other long term (current) drug therapy
CPT/HCPCS: 36415; 85025

== ENCOUNTER 2021-09-20 04:00 | Outpatient (REF) | payer MEDICARE, OTHER, SELFPAY ==
[2021-09-20 07:51] LABS: Absolute Lymphocyte Count 1.82 X10^3/uL (0.83-4.51); Absolute Neutrophil Count 4.7 X10^3/uL (2.0-7.7); Basophil# 0.04 X10^3/uL; Basophil% 0.6 % (0-1); Eosinophil# 0.05 X10^3/uL; Eosinophils% 0.7 % (0-5); Hematocrit 43.5 % (37-47); Hemoglobin 14.5 g/dL (12.0-15.0); Lymphocyte # 1.82 X10^3/ul (0.83-4.51); Mean Corp Hgb Conc 33.3 g/dL (32-36); Mean Corpuscular Hgb 29.6 pg (27.0-32.0); Mean Corpuscular Volume 88.8 fL (81-99); Mean Platelet Vol. 10.9 fl (6.2-12.0); Monocyte# 0.67 X10^3/uL; Monocyte% 9.2 % (0-10); NRBC Flagged by Analyzer 0 % (0-5); Neutrophil # 4.66 X10^3/uL (2.7-7.7); Neutrophil % 64.1 % (47-70); Platelet Count 204 K/mm3 (150-450); RBC Distribution Width CV 12.3 % (11.6-14.6); RBC Distribution Width SD 40.4 fl (35.1-43.9); White Blood Count 7.3 K/mm3 (4.4-11.0)
== END 2021-09-20 23:59 | disposition home or self-care (01) ==
LOC: OLS.BROOKB 04:00
PROVIDERS: PCP Family Medicine
DX: F03.91 Unspecified dementia, unspecified severity, with behavioral disturbance (principal); F06.2 Psychotic disorder with delusions due to known physiological condition; F41.1 Generalized anxiety disorder; Z79.899 Other long term (current) drug therapy
CPT/HCPCS: 36415; 85025

== ENCOUNTER 2021-09-28 10:30 | Outpatient (REF) | payer MEDICARE, OTHER, SELFPAY ==
[2021-09-28 11:19] LABS: Absolute Lymphocyte Count 1.98 X10^3/uL (0.83-4.51); Absolute Neutrophil Count 3.7 X10^3/uL (2.0-7.7); Basophil# 0.04 X10^3/uL; Basophil% 0.6 % (0-1); Eosinophil# 0.01 X10^3/uL; Eosinophils% 0.2 % (0-5); Hematocrit 37.2 % (37-47); Hemoglobin 13.1 g/dL (12.0-15.0); Lymphocyte # 1.98 X10^3/ul (0.83-4.51); Lymphocyte % 31.1 % (19-41); Mean Corp Hgb Conc 35.2 g/dL (32-36); Mean Corpuscular Hgb 30.4 pg (27.0-32.0); Mean Corpuscular Volume 86.3 fL (81-99); Mean Platelet Vol. 10.7 fl (6.2-12.0); Monocyte# 0.58 X10^3/uL; Monocyte% 9.1 % (0-10); NRBC Flagged by Analyzer 0 % (0-5); Neutrophil # 3.72 X10^3/uL (2.7-7.7); Neutrophil % 58.5 % (47-70); Platelet Count 239 K/mm3 (150-450); RBC Distribution Width CV 12.1 % (11.6-14.6); RBC Distribution Width SD 38.7 fl (35.1-43.9); Red Blood Count 4.31 M/mm3 (4.2-5.4); White Blood Count 6.4 K/mm3 (4.4-11.0)
== END 2021-09-28 23:59 | disposition home or self-care (01) ==
LOC: OLS.BROOKB 10:30
PROVIDERS: PCP Family Medicine
DX: Z79.899 Other long term (current) drug therapy (principal)
CPT/HCPCS: 36415; 85025

== ENCOUNTER 2021-11-09 06:10 | Outpatient (REF) | payer MEDICARE, OTHER, SELFPAY ==
[2021-11-09 06:47] LABS: Hematocrit 39.8 % (37-47); Hemoglobin 13.5 g/dL (12.0-15.0); Mean Corp Hgb Conc 33.9 g/dL (32-36); Mean Corpuscular Hgb 30.1 pg (27.0-32.0); Mean Corpuscular Volume 88.8 fL (81-99); Mean Platelet Vol. 11.8 fl (6.2-12.0); Platelet Count 163 K/mm3 (150-450); RBC Distribution Width SD 45.1 fl (35.1-43.9); Red Blood Count 4.48 M/mm3 (4.2-5.4); White Blood Count 6.4 K/mm3 (4.4-11.0)
[2021-11-09 07:09] LABS: Valproic Acid (Depakene) Level 62 ug/mL (50-100)
== END 2021-11-09 23:59 | disposition home or self-care (01) ==
LOC: OLS.BROOKB 06:10
PROVIDERS: PCP Family Medicine
DX: Z79.899 Other long term (current) drug therapy (principal)
CPT/HCPCS: 36415; 80164; 85027

== ENCOUNTER 2022-01-01 17:09 | Emergency (ER) | payer MEDICARE, OTHER, SELFPAY ==
[2022-01-01 17:10] VITALS: BP 105/60; PULSE 74; RESP 16; TEMP 35.8; O2SAT 100; BMI 22.1
[2022-01-01 17:12] VITALS: O2SAT 99
--- NOTE | 2022-01-01 17:24 | CCN.REFER ---
AFTER CLEANING PT'S FACE, NOTICE THAT PT ALSO HAS A LAC TO THE NOSE.
--- NOTE | 2022-01-01 17:25 | ED.RN ---
PT ARRIVES FROM [facility] WITH COPIOUS AMOUNTS OF DRIED BLOOD TO FACE AND HAIR. PT ALSO HAD AN EXTREMELY SATURATED ATTENDS ON WITH A STRONG URINE SMELL UPON ARRIVAL.
--- NOTE | 2022-01-01 17:42 | CT_ITS ---
STUDY: CT BRAIN WITHOUT CONTRAST REASON FOR EXAM: Female, 66 years old. Fall RADIATION DOSAGE (If Supplied By Facility): CTDIvol = ( 44.99 ) mGy, DLP = ( 812.98 ) mGycm TECHNIQUE: Transaxial CT imaging of the brain was performed without administration of intravenous contrast material. Individualized dose optimization techniques were used for this CT. COMPARISON: September 07, 2021 FINDINGS: Normal soft tissue structures. Normal calvarium. There is moderate cerebral atrophy with widening of the extra-axial spaces and ventricular dilatation. There are areas of decreased attenuation within the white matter tracts of the supratentorial brain, consistent with microvascular disease changes. Normal basal ganglia and thalami. Normal brainstem. Normal cerebellum. There is no intracranial hemorrhage. There are no findings of an acute ischemic infarction. Normal visualized paranasal sinuses. CT/Brain/Head without Contrast IMPRESSION: Chronic involutional changes of the brain. Electronically Signed: Per Ness MD at 18:14 EDT ,
--- NOTE | 2022-01-01 17:42 | CT_ITS ---
STUDY: CT CERVICAL SPINE WITHOUT CONTRAST REASON FOR EXAM: Female, 66 years old. Fall RADIATION DOSAGE (If Supplied By Facility): CTDIvol = ( 13.37 ) mGy, DLP = ( 247.79 ) mGycm TECHNIQUE: High resolution transaxial imaging was performed without contrast material. Sagittal and coronal images were reconstructed. Individualized dose optimization techniques were used for this CT. COMPARISON: September 07, 2021 FINDINGS: Normal craniovertebral junction. There are degenerative changes of the anterior atlantoaxial articulation. Normal odontoid process. There is reversal of the normal cervical lordosis. There is no acute fracture. There are stable posterior ligamentous calcifications. Normal vertebral bodies and posterior osseous elements. C2-3: Normal endplates. Normal disc height and morphology. Normal central canal and intervertebral neuroforamina. C3-4: Normal endplates. Normal disc height and morphology. Normal central canal and intervertebral neuroforamina. C4-5: Normal endplates. Normal disc height and morphology. Normal central canal and intervertebral neuroforamina. C5-6: Anterior spurring. Normal disc height and morphology. Normal central canal and intervertebral neuroforamina. C6-7: Anterior spurring. Normal disc height and morphology. Normal central canal and intervertebral neuroforamina. C7-T1: Normal endplates. Normal disc height and morphology. Normal central canal and intervertebral neuroforamina. Normal visualized soft tissue structures. CT/Spine Cervical without Contras IMPRESSION: Mild degenerative change. No fracture. Electronically Signed: Per Ness MD at 18:28 EDT Reading Location ID and State: [facility] / [place] , Service support ,
--- NOTE | 2022-01-01 17:43 | EDS_ITS ---
HPI HPI - Fall History of Present Illness Chief Complaint: Fall Detail of Chief Complaint: Fall with head injury prior to arrival in the department Informant: EMS and SN[facility] Narrative Narrative: Patient presents to the emergency department via EMS from [facility] after having a fall. Patient normally uses a wheelchair and does not walk. She was found in her room on the floor. Patient sustained laceration to her forehead. Patient really cannot give any history as she is in the dementia unit at the [facility]. [facility] Medical History Anxiety Dementia Multiple-personality disorder Home Medications acetaminophen 650 mg PO Q4H PRN 06/14/21 [History Last Taken Unknown] gabapentin 200 mg PO QHS 06/14/21 [History Last Taken Unknown] hydroxyzine HCl 25 mg PO BID PRN 06/14/21 [History Last Taken Unknown] melatonin 5 mg PO QHS 06/14/21 [History Last Taken Unknown] memantine 10 mg PO BID 06/14/21 [History Last Taken Unknown] mirtazapine 7.5 mg PO QHS 06/14/21 [History Last Taken Unknown] olanzapine 5 mg PO BID 06/14/21 [History Last Taken Unknown] polyethylene glycol 3350 17 g PO DAILY PRN 06/14/21 [History Last Taken Unknown] alum-mag hydroxide-simeth [Mi-Acid] 30 ml PO Q4H PRN 09/07/21 [History Last Take n Unknown] clozapine 25 mg PO BID 09/07/21 [History Last Taken Unknown] dicyclomine 10 mg PO TID PRN PRN 09/07/21 [History Last Taken Unknown] divalproex 125 mg PO BID 09/07/21 [History Last Taken Unknown] hydroxyzine pamoate [Vistaril] 25 mg PO BID 09/07/21 [History Last Taken Unknown] ibuprofen 600 mg PO TID PRN 09/07/21 [History Last Taken Unknown] magnesium hydroxide [Milk of Magnesia] 30 ml PO DAILY PRN 09/07/21 [History Last Taken Unknown] menthol [Biofreeze (menthol)] 1 applic TOPICAL TID PRN 09/07/21 [History Last Taken Unknown] menthol-zinc oxide [Calmoseptine] 1 applic TOPICAL TID PRN PRN 09/07/21 [History Last Taken Unknown] Allergy/AdvReac Type Severity Reaction Status Date / Time acetaminophen Allergy PT UNSURE Verified 01/01/22 17:10 [From Percogesic] OF REACTION codeine Allergy Hives Verified 01/01/22 17:10 diphenhydramine Allergy PT UNSURE Verified 01/01/22 17:10 [From Percogesic] OF REACTION duloxetine [From Cymbalta] Allergy PT UNSURE Verified 01/01/22 17:10 OF REACTION erythromycin base Allergy PT UNSURE Verified 01/01/22 17:10 OF REACTION Penicillins Allergy Rash Verified 01/01/22 17:10 phenyltoloxamine Allergy PT UNSURE Verified 01/01/22 17:10 [From Percogesic] OF REACTION rofecoxib [From Vioxx] Allergy PT UNSURE Verified 01/01/22 17:10 OF REACTION Social History Smoking Status: Never smoker ROS ROS ED Review of Systems ROS Unobtainable: due to mental condition EXAM Physical Exam Const Vital Signs: 01/01/22 17:10 01/01/22 17:12 Temperature 96.5 F L Temperature Source Temporal Pulse Rate 74 Respiratory Rate 16 Blood Pressure 105/60 Blood Pressure Mean 75 Pulse Ox 100 99 Oxygen Delivery Method Room Air Room Air Positive well nourished and well developed General Appearance ED: well developed and NAD HEENT Reports TM's clear and moist mucous membranes HEENT Narrative: 4.5 cm laceration to mid forehead. No bony step-offs noted. Patient also with small 8 mm laceration to bridge of the nose. normocephalic; Negative for trauma or tenderness Tympanic Membrane ED: Yes TM's clear Eyes PERRL and EOMs intact bilaterally General Eye ED: Negative for pale conjunctiva or scleral icterus Neck no lymphadenopathy, supple and no JVD General: Negative for tenderness Chest Wall inspection of chest normal and palpation of chest normal Chest: Negative for tenderness Resp normal respiratory effort and clear to auscultation bilaterally Effort and Inspection: Negative for respiratory distress or pain with movement Auscultation: Negative for rhonchi, wheezes or diminished lung sounds Cardio regular rate, regular rhythm, S1 normal heart sound, S2 normal heart sound and no murmurs Peripheral Pulses: pulses 2+ throughout GI normal to inspection, nondistended, normoactive bowel sounds, soft to palpation, non-tender, non-distended and no masses Back/Spine no CVA tenderness and no thoracic nor lumbar tenderness Extremity normal to inspection General Extremety ED: Negative for edema General Extremity: Negative for edema Neuro oriented x3, CN's II-XII intact bilaterally, no sensory deficits noted and gait normal Sensorium / Orientation: awake, alert, oriented to person, oriented to place and oriented to time Motor Exam: strength 5/5 throughout and strength abnormal Psych mental status grossly normal Skin no rashes or lesions noted and no wounds MDM MDM MDM Narrative Medical decision making narrative: Patient had forehead laceration repair as well as a small laceration of the bridge of the nose. I advised family to have sutures removed in 7 days. Patient will be discharged back to [facility]. Radiography Diagnostic Testing: Clinical Impression(s) from Imaging Studies Brain CT 01/01/22 17:42 IMPRESSION: Chronic involutional changes of the brain. Electronically Signed: Per Ness MD at 18:14 EDT Reading Location ID and State: [facility] / [place] , Service support , Cervical Spine CT 01/01/22 17:42 IMPRESSION: Mild degenerative change. No fracture. Electronically Signed: Per Ness MD at 18:28 EDT , 1 view x-ray of the pelvis obtained interpreted by myself no acute fractures. Official report from radiology pending. Procedures Lacerations Forehead laceration: Length: 1.77 in Depth: Sub Q Shape: Stellate Prep: Sunita-Clefrederic Laceration repair: Irrigated, Lidocaine and Local Irrigated (ml): 100 Number of Sutures/Merom: 5 Suture Information: Ethilon and 5-0 Comment: Patient also had a small 8 mm laceration over the bridge of the nose which I closed with 1 single interrupted suture of 5-0 nylon. Patient tolerated procedure well. Discharge Plan Triage Chief Complaint: Fall ED Provider: Keshav Golden Dx/Rx/DC Orders Clinical Impression: Fall, Closed head injury, Laceration of scalp Instructions: ED Fall with Uncertain Cause, ED Head Injury (Adult), ED Laceration: All Closures Prescriptions: No Action acetaminophen 325 mg Tablet 650 mg PO Q4H PRN (Reason: pain/fever) RF: 0 polyethylene glycol 3350 17 gram Powder In Packet 17 g PO DAILY PRN (Reason: Constipation) RF: 0 olanzapine 5 mg Tablet 5 mg PO BID RF: 0 hydroxyzine HCl 25 mg Tablet 25 mg PO BID PRN (Reason: Anxiety) RF: 0 memantine 10 mg Tablet 10 mg PO BID RF: 0 mirtazapine 7.5 mg Tablet 7.5 mg PO QHS RF: 0 gabapentin 100 mg Tablet 200 mg PO QHS RF: 0 melatonin 5 mg Tablet 5 mg PO QHS RF: 0 magnesium hydroxide [Milk of Magnesia] 400 mg/5 mL Suspension 30 ml PO DAILY PRN (Reason: Constipation) RF: 0 alum-mag hydroxide-simeth [Mi-Acid] 200-200-20 mg/5 mL Suspension 30 ml PO Q4H PRN (Reason: Indigestion) RF: 0 ibuprofen 600 mg Tablet 600 mg PO TID PRN (Reason: pain/fever) RF: 0 divalproex 125 mg Capsule, Delayed Rel Sprinkle 125 mg PO BID RF: 0 dicyclomine 10 mg Capsule 10 mg PO TID PRN PRN (Reason: stomach cramping) RF: 0 hydroxyzine pamoate [Vistaril] 25 mg Capsule 25 mg PO BID RF: 0 clozapine 12.5 mg Tablet 25 mg PO BID RF: 0 menthol-zinc oxide [Calmoseptine] 0.44-20.6 % Ointment 1 applic TOPICAL TID PRN PRN (Reason: skin issues) RF: 0 Biofreeze (menthol) 4 % Gel 1 applic TOPICAL TID PRN (Reason: Muscle Pain) RF: 0 Primary Care Provider: Lucrecia Jerez Referrals: Lucrecia Jerez MD [Primary Care Provider] - 7 Days for suture removal Disposition Disposition: Home, Self Care
--- NOTE | 2022-01-01 17:52 | CCN.REFER ---
DAUGHTER AT BEDSIDE, STATES SHE IS NOT HAPPY WITH [facility] AND THE CARE THEY ARE PROVIDING.
--- NOTE | 2022-01-01 18:02 | RAD_ITS ---
STUDY: X-RAY - PELVIS REASON FOR EXAM: Female, 66 years old. Fall. TECHNIQUE: One view of the pelvis was obtained. COMPARISON: None. FINDINGS: There is a normal bowel gas pattern. Normal visualized soft tissue structures. Normal bilateral iliac wings, sacroiliac joints and visualized sacrum. Normal visualized bilateral superior and inferior pubic rami. There are degenerative changes of the pubic symphysis with articular narrowing and sclerosis. Normal ischial tuberosities. Normal visualized right femoral head. There is enthesopathic spurring of the greater trochanter. There is osteoarthritic spur formation of the right acetabular rim. Normal right hip joint. Normal visualized left femoral head. There is enthesopathic spurring of the greater trochanter. Normal left acetabulum. Normal left hip joint. There is no acute fracture. RAD/Pelvis 1 or 2 Views IMPRESSION: No acute fracture. Degenerative change. Electronically Signed: Per Ness MD at 19:34 EDT ,
[2022-01-01] MEDS: Lidocaine 1% /Epi 1:100 (20ml) 20 ML Vial 6 ML INFILT (18:45)
[2022-01-01 19:09] VITALS: BP 111/54; PULSE 72; RESP 15; O2SAT 97
[2022-01-01 19:20] VITALS: BP 111/54; PULSE 72; RESP 15; O2SAT 97
== END 2022-01-01 19:59 | disposition home or self-care (01) ==
PROVIDERS: Emergency Provider Emergency Medicine; PCP Family Medicine; Visit Provider Emergency Medicine
DX: S01.81XA Laceration without foreign body of other part of head, initial encounter (principal); F03.90 Unspecified dementia, unspecified severity, without behavioral disturbance, psychotic disturbance, mood disturbance, and anxiety; F44.81 Dissociative identity disorder; W19.XXXA Unspecified fall, initial encounter; Y93.9 Activity, unspecified; Y92.129 Unspecified place in nursing home as the place of occurrence of the external cause; Z99.3 Dependence on wheelchair; F41.9 Anxiety disorder, unspecified; Z79.899 Other long term (current) drug therapy; S01.21XA Laceration without foreign body of nose, initial encounter
CPT/HCPCS: 12013; 70450; 72125; 72170; 99285